=== PATIENT | male | born 1995 | race Caucasian/White ===

== ENCOUNTER 2017-05-19 12:23 | Emergency (ER) | payer OTHER ==
[2017-05-19 12:32] VITALS: BP 128/67
== END 2017-05-19 14:31 | disposition left against medical advice (07) ==
LOC: ED 12:23
DX: Z53.21 Procedure and treatment not carried out due to patient leaving prior to being seen by health care provider (principal)

== ENCOUNTER 2018-07-21 08:56 | Emergency (ER) | payer OTHER ==
--- NOTE | 2018-07-21 10:02 | Emergency Department Report ---
ED Chest Pain HPI - General Chief Complaint: Chest Pain Stated Complaint: CHEST PAIN Time Seen by Provider: 07/21/18 09:36 Source: patient Mode of arrival: Ambulatory Limitations: No Limitations - History of Present Illness Initial Comments: 23-year-old male with a past medical history GERD visits to the hospital complaints of chest pain 2 days. Pain is to the left of the sternal area, intermittent, aching in nature, worse with movement. Pain is rated as 6 out of 10 in intensity. Taking Motrin intermittently for a toothache. Patient has a intermittent dry cough in the morning but denies, shortness of breath, calf tenderness, leg edema, history of PE/DVT. He has a history of stomach ulcers but is not currently on H2 elaine or PPI and has taken Motrin for a toothache. Patient states does have a primary care doctor - Related Data Previous Rx's Medication Instructions Recorded Last Taken Type Hydrocodone Bit/Acetaminophen 1 each PO Q6H #7 tablet 03/01/13 Unknown Rx [Lortab 5-500 Tablet] Ibuprofen [Motrin] 600 mg PO Q8H PRN #14 tablet 03/01/13 Unknown Rx Famotidine [Pepcid] 20 mg PO BID #30 tablet 07/21/18 Unknown Rx traMADol [Ultram 50 MG tab] 50 mg PO Q6HR PRN #30 tablet 07/21/18 Unknown Rx Allergies Allergy/AdvReac Type Severity Reaction Status Date / Time No Known Allergies Allergy Verified 05/19/17 12:37 Heart Score - HEART Score History: Slightly suspicious EKG: Normal Age: < 45 Risk factors: No known risk factors Troponin: < normal limit (not performed) HEART Score: 0 ED Review of Systems ROS: Stated complaint: CHEST PAIN Other details as noted in HPI Comment: All other systems reviewed and negative ED Past Medical Hx - Past Medical History Previous Medical History?: Yes Hx GERD: Yes Additional medical history: ulcers, possible chron's disease, nasal fractures - Surgical History Past Surgical History?: No - Social History Smoking Status: Current Every Day Smoker Substance Use Type: Alcohol, Marijuana - Medications Home Medications: Home Medications Medication Instructions Recorded Confirmed Last Taken Type Hydrocodone Bit/Acetaminophen 1 each PO Q6H #7 tablet 03/01/13 Unknown Rx [Lortab 5-500 Tablet] Ibuprofen [Motrin] 600 mg PO Q8H PRN #14 tablet 03/01/13 Unknown Rx Famotidine [Pepcid] 20 mg PO BID #30 tablet 07/21/18 Unknown Rx traMADol [Ultram 50 MG tab] 50 mg PO Q6HR PRN #30 tablet 07/21/18 Unknown Rx ED Physical Exam - General Limitations: No Limitations - Other Other exam information: General: No limitations, patient is alert in no acute distress Head exam: Atraumatic, normocephalic Eyes exam: Normal appearance ENT: Moist mucous membrane, normal oropharynx Neck exam: Normal inspection, full range of motion, no meningismus nontender Respiratory exam: Clear to auscultation bilateral, no wheezes, rales, crackles Cardiovascular: Normal rate and rhythm, reproducible chest pain with stretching of anterior thorax Abdomen: Soft, nondistended, and nontender, with normal bowel sounds, no rebound, or guarding Extremity: Full range of motion normal inspection no deformity, no calf tenderness or edema Back: Normal Inspection, full range of motion, no tenderness Neurologic: Alert, oriented x3, cranial nerves intact, no motor or sensory deficit Psychiatric: normal affect, normal mood Skin: Warm, dry, intact ED Course Vital Signs 07/21/18 09:00 Temperature 97.8 F Pulse Rate 89 Respiratory 20 Rate Blood Pressure 134/94 O2 Sat by Pulse 100 Oximetry CYRUS score - Cyrus Score Age > 65: (0) No Aspirin use within the Past 7 Days: (0) No 3 or more CAD Risk Factors: (0) No 2 or more Angina events in past 24 hrs: (0) No Known CAD with more than 50% Stenosis: (0) No Elevated Cardiac Markers: (0) No ST Deviation Greater than 0.5mm: (0) No CYRUS Score: 0 ED Medical Decision Making - EKG Data -: EKG Interpreted by Ri EKG shows normal: sinus rhythm, axis (qrs 76), QRS complexes (qrsd 95), ST-T waves (no stemi/t inv) Rate: normal (85) - Medical Decision Making Patient has reproducible chest wall pain with movement. EKG unremarkable suspect costochondritis. Treated symptomatically and with empiric H2 elaine given history of ulcer and epigastric burning pain. - Differential Diagnosis costochondritis, pneumonia, bronchitis, chest wall strain Critical Care Time: No Critical care attestation.: If time is entered above; I have spent that time in minutes in the direct care of this critically ill patient, excluding procedure time. ED Disposition Clinical Impression: Costochondritis Disposition: TO HOME OR SELFCARE Is pt being admited?: No Does the pt Need Aspirin: No Condition: Stable Instructions: Costochondritis (ED) Additional Instructions: Take the medication as prescribed. Follow up with your doctor. Return if symptoms worsen as indicated by your discharge instructions Prescriptions: Famotidine [Pepcid] 20 mg PO BID #30 tablet traMADol [Ultram 50 MG tab] 50 mg PO Q6HR PRN #30 tablet PRN Reason: Pain Referrals: your, pmd [Other] - 3-5 Days [facility] [Provider Group] - 3-5 Days Time of Disposition: 10:01
[2018-07-22 13:45] VITALS: BP 134/94
== END 2018-07-21 10:41 | disposition home or self-care (01) ==
LOC: ED 08:56
DX: M94.0 Chondrocostal junction syndrome [Tietze] (principal); K08.89 Other specified disorders of teeth and supporting structures; K21.9 Gastro-esophageal reflux disease without esophagitis; F17.200 Nicotine dependence, unspecified, uncomplicated
CPT/HCPCS: 93005; 93010; 99282